=== PATIENT | male | born 1975 | race Caucasian/White ===

== ENCOUNTER 2016-12-09 07:10 | Day surgery (SDC) | payer OTHER ==
[~2016-12-09] VITALS: Ht 180.3 cm; Wt 96.6 kg
[~2016-12-09 07:10] MED LIST: Sodium Chloride LOK Flush 10 mL Syringe IV PRN; fentaNYL-PF 50 mCg/mL 2 mL Inj IVPUSH PRN
[2016-12-09 07:34] VITALS: BP 123/81; PULSE 63; RESP 16; O2SAT 98
[2016-12-09] MEDS ORDERED: MV-M1TAB22 PO (07:35)
[2016-12-09] MEDS ORDERED: SELE200T11 PO (07:35)
[2016-12-09] MEDS: 0.9% Sodium Chloride 1,000 ML IV SCH ×2 (07:54→08:07)
[2016-12-09 08:16] VITALS: BP 116/63; PULSE 79; RESP 16; O2SAT 96
[2016-12-09 08:23] VITALS: BP 127/69; PULSE 80; RESP 16; O2SAT 96
--- NOTE | 2016-12-09 09:23 | ENDO ---
[address] [address] ENDOSCOPY PROCEDURE PATIENT: CANDIS HARDY : 1975 MR#: [id number] ADMIT: 12/09/2016 JOB ID: [id number] DATE OF PROCEDURE: 12-09-16 PROCEDURE: Colonoscopy INDICATION: Rectal bleeding. Patient's ASA classification is one. Mallampati score is two. MEDICATIONS: 1. Versed 6 mg. 2. Fentanyl 125 mcg. INSTRUMENT USED: [id number]. PREPARATION QUALITY: Fair. PROCEDURE DETAILS: After informed consent was obtained, the patient was brought to the GI suite, where he was placed on oxygen via nasal cannula and monitored with continuous pulse oximeter, telemetry, and blood pressure monitoring. A time-out was performed. Then, he was placed in a left lateral decubitus position and medications were administered for sedation. Digital rectal exam was performed and was unremarkable. The colonoscope was then inserted into the rectum and advanced under direct visualization to the cecum, which was identified by the presence of the ileocecal valve and appendiceal orifice. Once the cecum was reached, the colonoscope was withdrawn back to the rectum. Mucosa and lumen were examined. In the rectum, retroflexion was performed. Following retroflexion, remaining air in the rectum was suctioned and procedure was completed. FINDINGS: Normal exam from rectum to cecum. IMPRESSION: Normal colonoscopy. Suspect rectal bleeding from benign anorectal disease. RECOMMENDATIONS: Stool softeners and please keep appointment for MRI that has been scheduled. COMPLICATIONS: None. ESTIMATED BLOOD LOSS: Zero.
== END 2016-12-09 23:59 | disposition home or self-care (01) ==
LOC: END 07:10
PROVIDERS: ATTEND Internal Medicine Gastroenterology
DX: K62.89 Other specified diseases of anus and rectum (principal); K62.5 Hemorrhage of anus and rectum; R16.0 Hepatomegaly, not elsewhere classified; F10.20 Alcohol dependence, uncomplicated; Z87.891 Personal history of nicotine dependence
CPT/HCPCS: 45378; G0500; J2250; J3010; J7030